=== PATIENT | female | born 2000 | race Caucasian/White ===

== ENCOUNTER 2025-04-15 18:15 | Emergency (ER) | payer OTHER ==
[2025-04-15] MEDS ORDERED: PENICILLIN VK500 MG PO (18:48)
[2025-04-15] MEDS ORDERED: Lidocaine Hydrochloride 15 ML UDC PO STA (18:49)
[2025-04-15] MEDS ORDERED: BENZOCAINE 20% 11.9 GM GEL T STA (18:49)
[2025-04-15] MEDS ORDERED: PENICILLIN V POTASSIUM 500 MG TAB PO ONE (18:50)
[2025-04-15] MEDS ORDERED: Acetaminophen/Hydrocodone 5 MG/325 MG TABLET PO ONE (18:50)
== END 2025-04-15 19:07 | disposition home or self-care (01) ==
LOC: ED 18:15
DX: K02.9 Dental caries, unspecified (principal)